=== PATIENT | female | born 1980 | race Caucasian/White ===

== ENCOUNTER 2019-03-13 02:09 | Inpatient (IN) | payer MEDICAID ==
[~2019-03-13] VITALS: Ht 162.6 cm; Wt 134.1 kg
[2019-03-13] MEDS ORDERED: ALUMINUM/MAG/SIMETHICONE 30 ML UDC ONE ×2 (02:45→03:06)
[2019-03-13] MEDS ORDERED: ALUMINUM/MAG/SIMETHICONE 30 ML UDC PO PRN (03:00)
[2019-03-13] MEDS ORDERED: ONDANSETRON ODT 8 MG ONE (03:05)
[2019-03-13 03:06] LABS: BASOPHILS # (AUTO) 0.03 x10^3/uL (0-0.1); BASOPHILS % (AUTO) 0 % (0-1); EOSINOPHILS # (AUTO) 0.04 x10^3/uL (0-0.4); EOSINOPHILS % (AUTO) 0 % (1-7); LYMPHOCYTES # (AUTO) 1.89 x10^3/uL (1-3.4); LYMPHOCYTES % (AUTO) 22 % (22-44); MD NO; MEAN CORPUSCULAR HEMOGLOBIN 29.7 pg (27.0-34.8); MEAN CORPUSCULAR HGB CONC 33.7 g/dL (32.4-35.8); MEAN CORPUSCULAR VOLUME 88.2 fL (80-100); MEAN PLATELET VOLUME 7.6 fL (7.4-10.4); MONOCYTES # (AUTO) 0.47 x10^3/uL (0.2-0.8); MONOCYTES % (AUTO) 5 % (2-9); NEUTROPHILS # (AUTO) 6.25 x10^3/uL (1.8-6.8); NEUTROPHILS % (AUTO) 72 % (42-75); PLATELET COUNT 297 x10^3/uL (130-400); RED BLOOD COUNT 4.41 x10^6/uL (3.82-5.3); RED CELL DISTRIBUTION WIDTH 15.3 % (9.6-15.2)
[2019-03-13 03:11] LABS: CREATININE,URINE RANDOM 95.9 mg/dL
[2019-03-13 03:17] LABS: MICROSCOPIC NOT IND
[2019-03-13 03:19] LABS: ALANINE AMINOTRANSFERASE 16 U/L (12-78); ALBUMIN 2.5 g/dL (3.4-5.0); ANION GAP 6 mmol/L (5-15); CALCIUM 8.5 mg/dL (8.5-10.1); CHLORIDE 109 mmol/L (98-107)
[2019-03-13 03:21] LABS: ALKALINE PHOSPHATASE 158 U/L (45-117); TOTAL PROTEIN 6.3 g/dL (6.4-8.2)
[2019-03-13 03:22] LABS: BILIRUBIN,TOTAL < 0.1 mg/dL (0.2-1.0)
[2019-03-13] MEDS ORDERED: OXYcodone/APAP 10/325MG TABLET ONE (03:38)
[2019-03-13] MEDS ORDERED: ONDANSETRON ODT 8 MG PO PRN (04:00)
[2019-03-13] MEDS ORDERED: OXYcodone/APAP 10/325MG TABLET PO ONE (04:00)
[2019-03-13] MEDS ORDERED: ONDANSETRON 2MG/ML, 2ML ONE ×4 (07:38→19:48)
[2019-03-13] MEDS: ONDANSETRON 2MG/ML, 2ML IVPush PRN ×4 (07:40→19:52)
[2019-03-13] MEDS ORDERED: HYDROmorphone 2 MG/ML, 1ML ONE ×5 (07:46→17:37)
[2019-03-13] MEDS: HYDROmorphone 2 MG/ML, 1ML IV PRN ×5 (07:50→17:40)
[2019-03-13] MEDS: D5%-LACTATED RINGERS 1,000 ML IV SCH (07:50)
[2019-03-13] MEDS: LAMOTRIGINE 200 MG TABLET PO SCH ×2 (09:00→20:30)
[2019-03-13] MEDS: LEVETIRACETAM 500 MG TABLET HOMEMEDPO SCH ×2 (09:00→20:30)
[2019-03-13] MEDS: LACTATED RINGERS 1,000 ML IV SCH ×2 (12:02→19:51)
[2019-03-13] MEDS ORDERED: LACTATED RINGERS 1,000 ML IV SCH (18:19)
[2019-03-13] MEDS ORDERED: OXYTOCIN 30U/ 0.9% NaCL 500ML 500 ML IV PRN (18:19)
[2019-03-13] MEDS ORDERED: D5%-LACTATED RINGERS 1,000 ML IV SCH (18:19)
[2019-03-13] MEDS ORDERED: OXYTOCIN 30U/ 0.9% NaCL 500ML 500 ML IV ONE (18:19)
[2019-03-13] MEDS ORDERED: FENTANYL PF 100 MCG/2ML IV PRN (18:30)
[2019-03-13] MEDS ORDERED: CALCIUM CARBONATE 500 MG TAB.CHEW PO PRN (18:30)
[2019-03-13] MEDS ORDERED: ZOSYN PER PHARMACY MC PRN (18:30)
[2019-03-13] MEDS ORDERED: FENTANYL PF 100 MCG/2ML IVPush PRN (18:30)
[2019-03-13] MEDS: PIPERACILLIN/TAZO/PMX 3.375GM 50 ML IV SCH (18:38)
[2019-03-13 19:11] LABS: BASOPHILS # (AUTO) 0.06 x10^3/uL (0-0.1); BASOPHILS % (AUTO) 1 % (0-1); EOSINOPHILS # (AUTO) 0.03 x10^3/uL (0-0.4); EOSINOPHILS % (AUTO) 0 % (1-7); HEMOGRAM NOTE RECHECKED; LYMPHOCYTES # (AUTO) 1.94 x10^3/uL (1-3.4); LYMPHOCYTES % (AUTO) 18 % (22-44); MD NO; MEAN CORPUSCULAR HEMOGLOBIN 29.5 pg (27.0-34.8); MEAN CORPUSCULAR HGB CONC 33.4 g/dL (32.4-35.8); MEAN CORPUSCULAR VOLUME 88.3 fL (80-100); MEAN PLATELET VOLUME 7.3 fL (7.4-10.4); MONOCYTES # (AUTO) 0.54 x10^3/uL (0.2-0.8); MONOCYTES % (AUTO) 5 % (2-9); NEUTROPHILS # (AUTO) 8.06 x10^3/uL (1.8-6.8); NEUTROPHILS % (AUTO) 76 % (42-75); PLATELET COUNT 272 x10^3/uL (130-400); RED BLOOD COUNT 4.02 x10^6/uL (3.82-5.3); RED CELL DISTRIBUTION WIDTH 15.6 % (9.6-15.2)
[2019-03-13 19:23] VITALS: BP 146/83
[2019-03-13 19:25] LABS: ALANINE AMINOTRANSFERASE 17 U/L (12-78); ALBUMIN 2.3 g/dL (3.4-5.0); ANION GAP 5 mmol/L (5-15); CALCIUM 8.1 mg/dL (8.5-10.1); CHLORIDE 109 mmol/L (98-107)
[2019-03-13 19:28] LABS: ALKALINE PHOSPHATASE 144 U/L (45-117); BILIRUBIN,TOTAL 0.3 mg/dL (0.2-1.0); TOTAL PROTEIN 5.6 g/dL (6.4-8.2)
[2019-03-13] MEDS ORDERED: MISOPROSTOL 25 MCG TABLET ONE (19:48)
[2019-03-13] MEDS: MISOPROSTOL 25 MCG TABLET VG PRN (19:59)
[2019-03-13] MEDS ORDERED: MISOPROSTOL 200 MCG TABLET ONE (21:24)
[2019-03-13] MEDS ORDERED: OXYTOCIN 30U/ 0.9% NaCL 500ML 500 ML ONE (21:24)
[2019-03-13] MEDS ORDERED: LIDOCAINE 1%, 20ML ONE (21:24)
[2019-03-13] MEDS ORDERED: NEWBORN KIT ONE (22:14)
[2019-03-14] MEDS ORDERED: ACETAMINOPHEN 325 MG TABLET ONE (00:10)
[2019-03-14] MEDS ORDERED: ACETAMINOPHEN 325 MG TABLET PO PRN (00:13)
[2019-03-14] MEDS: MISOPROSTOL 25 MCG TABLET VG PRN (01:00)
[2019-03-14] MEDS ORDERED: MISOPROSTOL 25 MCG TABLET ONE (01:02)
[2019-03-14] MEDS: D5%-LACTATED RINGERS 1,000 ML IV SCH (04:39)
[2019-03-14] MEDS ORDERED: TERBUTALINE 1 MG/ML, 1ML ONE ×2 (04:55→12:02)
[2019-03-14] MEDS ORDERED: TERBUTALINE 1 MG/ML, 1ML IV ONE (05:00)
[2019-03-14] MEDS ORDERED: METOCLOPRAMIDE 5 MG/ML, 2ML ONE (05:11)
[2019-03-14] MEDS ORDERED: SODIUM CITRATE/CITRIC ACID 15 ML UDC ONE (05:11)
[2019-03-14] MEDS: PIPERACILLIN/TAZO/PMX 3.375GM 50 ML IV SCH ×3 (06:36→18:33)
[2019-03-14] MEDS: LACTATED RINGERS 1,000 ML IVBOLUS PRN ×3 (07:21→12:30)
[2019-03-14] MEDS ORDERED: BUPIVACAINE 0.25% ONE (08:15)
[2019-03-14] MEDS ORDERED: LIDOCAINE/PF 1.5%-EPI 1:200K, 30ML ONE (08:16)
[2019-03-14] MEDS ORDERED: FENTANYL/BUPIV./NS/PF 250 ML EPIDCONT ONE (08:16)
[2019-03-14] MEDS ORDERED: FENTANYL/BUPIV./NS/PF 250 ML EPIDCONT SCH (08:55)
[2019-03-14] MEDS ORDERED: LACTATED RINGERS 1,000 ML IV SCH ×2 (08:55→14:18)
[2019-03-14] MEDS ORDERED: NALOXONE 0.4 MG/ML, 1ML IVPush PRN (09:00)
[2019-03-14] MEDS ORDERED: ONDANSETRON 2MG/ML, 2ML IVPush PRN ×2 (09:00→17:30)
[2019-03-14] MEDS ORDERED: EPHEDRINE 50 MG/ML, 1ML IVPush PRN ×2 (09:00→17:30)
[2019-03-14] MEDS ORDERED: DIPHENHYDRAMINE 50 MG/ML, 1ML IVPush PRN (09:00)
[2019-03-14] MEDS: LEVETIRACETAM 500 MG TABLET HOMEMEDPO SCH ×2 (09:35→21:06)
[2019-03-14] MEDS: LAMOTRIGINE 200 MG TABLET PO SCH ×2 (09:35→21:06)
[2019-03-14 10:52] VITALS: BP 116/62
[2019-03-14] MEDS ORDERED: TERBUTALINE 1 MG/ML, 1ML IVPush PRN (12:00)
[2019-03-14] MEDS ORDERED: TERBUTALINE 1 MG/ML, 1ML SQ PRN (12:00)
[2019-03-14] MEDS ORDERED: LIDOCAINE/MPF 2%-EPI 1:200K, 20 ML ONE (12:44)
[2019-03-14] MEDS ORDERED: DEXAMETHASONE 4 MG/ML, 1ML ONE (13:07)
[2019-03-14] MEDS ORDERED: ONDANSETRON 2MG/ML, 2ML ONE (13:07)
[2019-03-14] MEDS ORDERED: OXYTOCIN 10 UNITS/ML, 1ML ONE (13:07)
[2019-03-14] MEDS ORDERED: WATER-INJECTION,STERILE 10 ML IV ONE (13:07)
[2019-03-14] MEDS ORDERED: CEFAZOLIN 1,000 MG ONE (13:07)
[2019-03-14] MEDS ORDERED: morphine SULFATE/PF 0.5 MG/ML, 10ML ONE (13:13)
[2019-03-14] MEDS ORDERED: RHOGAM FROM BLOOD BANK 1 NOTE EA IM/IV ONE (14:30)
[2019-03-14] MEDS ORDERED: ONDANSETRON 2MG/ML, 2ML IV PRN (14:30)
[2019-03-14] MEDS ORDERED: METHYLERGONOVINE 0.2 MG/ML IM PRN (14:30)
[2019-03-14] MEDS ORDERED: CARBOPROST TROMETHAMINE 250 MCG/ML, 1ML IM PRN (14:30)
[2019-03-14] MEDS ORDERED: OXYcodone IR 5MG TABLET PO PRN (14:30)
[2019-03-14] MEDS ORDERED: MISOPROSTOL 200 MCG TABLET PR PRN (14:30)
[2019-03-14] MEDS ORDERED: KETOROLAC 30 MG/1 ML ONE (14:39)
[2019-03-14] MEDS: KETOROLAC 30 MG/1 ML IV SCH ×2 (14:42→22:17)
[2019-03-14] MEDS ORDERED: SODIUM CITRATE/CITRIC ACID 15 ML UDC PO ONE (15:30)
[2019-03-14] MEDS ORDERED: METOCLOPRAMIDE 5 MG/ML, 2ML IV ONE (15:30)
[2019-03-14] MEDS ORDERED: OXYcodone 5 MG/5 ML ORAL.SOL UDC ONE (15:57)
[2019-03-14] MEDS ORDERED: OXYcodone 5 MG/5 ML ORAL.SOL UDC PO ONE ×2 (16:00→16:30)
[2019-03-14] MEDS: LACTATED RINGERS 1,000 ML IV SCH ×2 (16:03→21:05)
[2019-03-14] MEDS: OXYTOCIN 30U/ 0.9% NaCL 500ML 500 ML IV SCH (16:04)
[2019-03-14 16:36] VITALS: BP 90/52
[2019-03-14] MEDS ORDERED: DO NOT GIVE XX SCH (17:30)
[2019-03-14] MEDS ORDERED: KETOROLAC 30 MG/1 ML IVPush SCH (17:30)
[2019-03-14] MEDS ORDERED: NALOXONE 0.4 MG/ML, 1ML IV PRN ×2 (17:30)
[2019-03-14] MEDS ORDERED: morphine SULFATE 10 MG/ML, 1ML IV PRN (17:30)
[2019-03-14 20:15] VITALS: BP 109/71
[2019-03-14] MEDS ORDERED: LACTATED RINGERS 500 ML IVBOLUS ONE (20:30)
[2019-03-14 21:42] LABS: BASOPHILS % (AUTO) 0 % (0-1); EOSINOPHILS % (AUTO) 0 % (1-7); LYMPHOCYTES # (AUTO) 1.05 x10^3/uL (1-3.4); LYMPHOCYTES % (AUTO) 10 % (22-44); MD NO; MEAN CORPUSCULAR HEMOGLOBIN 29.7 pg (27.0-34.8); MEAN CORPUSCULAR VOLUME 90.2 fL (80-100); MONOCYTES # (AUTO) 0.25 x10^3/uL (0.2-0.8); MONOCYTES % (AUTO) 2 % (2-9); NEUTROPHILS # (AUTO) 9.42 x10^3/uL (1.8-6.8); NEUTROPHILS % (AUTO) 88 % (42-75); PLATELET COUNT 239 x10^3/uL (130-400); RED CELL DISTRIBUTION WIDTH 15.4 % (9.6-15.2)
[2019-03-14 23:45] VITALS: BP 104/69
[2019-03-15] MEDS: PIPERACILLIN/TAZO/PMX 3.375GM 50 ML IV SCH ×4 (00:10→17:50)
[2019-03-15] MEDS: OXYTOCIN 30U/ 0.9% NaCL 500ML 500 ML IV SCH ×3 (00:18→20:18)
[2019-03-15 04:00] VITALS: BP 99/64
[2019-03-15] MEDS: KETOROLAC 30 MG/1 ML IV SCH ×4 (04:30→22:50)
[2019-03-15 07:48] VITALS: BP 85/59
[2019-03-15] MEDS: LEVETIRACETAM 500 MG TABLET HOMEMEDPO SCH ×2 (08:20→21:00)
[2019-03-15] MEDS: LAMOTRIGINE 200 MG TABLET PO SCH ×2 (08:24→21:00)
[2019-03-15] MEDS: PRENATAL VIT/IRON/FA 1 EACH TABLET PO SCH (09:00)
[2019-03-15] MEDS: LACTATED RINGERS 1,000 ML IV SCH ×2 (10:18→20:18)
[2019-03-15] MEDS ORDERED: DIPH,PERTUSS(ACELL),TET VAC/PF NC IM-VACC ONE ×2 (11:00→16:30)
[2019-03-15 12:00] VITALS: BP 104/70
[2019-03-15] MEDS ORDERED: MEASLES,MUMPS&RUBELLA VACC/PF 0.5 ML SQ-VACC ONE (16:30)
[2019-03-15 20:00] VITALS: BP 97/59
[2019-03-15] MEDS: OXYcodone IR 5MG TABLET PO PRN (21:14)
[2019-03-16] MEDS: PIPERACILLIN/TAZO/PMX 3.375GM 50 ML IV SCH ×3 (00:15→16:20)
[2019-03-16] MEDS: OXYcodone IR 5MG TABLET PO PRN ×3 (01:35→16:20)
[2019-03-16] MEDS: KETOROLAC 30 MG/1 ML IV SCH ×2 (04:22→11:55)
[2019-03-16] MEDS: LACTATED RINGERS 1,000 ML IV SCH ×2 (06:18→17:09)
[2019-03-16] MEDS: OXYTOCIN 30U/ 0.9% NaCL 500ML 500 ML IV SCH ×2 (06:18→17:09)
[2019-03-16] MEDS: LEVETIRACETAM 500 MG TABLET HOMEMEDPO SCH ×2 (07:30→20:19)
[2019-03-16] MEDS: LAMOTRIGINE 200 MG TABLET PO SCH ×2 (07:30→20:19)
[2019-03-16 07:40] VITALS: BP 131/80
[2019-03-16] MEDS ORDERED: FENTANYL PF 250 MCG/5ML ONE (09:56)
[2019-03-16] MEDS ORDERED: MIDAZOLAM 1 MG/ML, 2ML ONE (09:56)
[2019-03-16] MEDS ORDERED: SUCCINYLCHOLINE 20 MG/ML, 10ML ONE (09:57)
[2019-03-16] MEDS ORDERED: DEXAMETHASONE 4 MG/ML, 1ML ONE (09:57)
[2019-03-16] MEDS ORDERED: ROCURONIUM 10MG/ML,5ML ONE (09:57)
[2019-03-16] MEDS ORDERED: NEOSTIGMINE 1 MG/ML, 10ML ONE (09:57)
[2019-03-16] MEDS ORDERED: GLYCOPYRROLATE 0.2MG/1ML, 5ML ONE (09:57)
[2019-03-16] MEDS ORDERED: CEFOTETAN PMX 2GM/50ML 50 ML ONE (09:57)
[2019-03-16] MEDS ORDERED: ONDANSETRON 2MG/ML, 2ML ONE (09:57)
[2019-03-16] MEDS ORDERED: PROPOFOL 10 MG/ML, 20ML ONE (09:57)
[2019-03-16] MEDS: PRENATAL VIT/IRON/FA 1 EACH TABLET PO SCH (10:01)
[2019-03-16] MEDS ORDERED: BUPIVACAINE/PF-EPI 0.5% 1:200K ONE (10:05)
[2019-03-16] MEDS ORDERED: HALOPERIDOL 5 MG/ML IV PRN (10:30)
[2019-03-16] MEDS ORDERED: LABETALOL 5MG/ML, 20ML IV PRN (10:30)
[2019-03-16] MEDS ORDERED: HYDROmorphone 2 MG/ML, 1ML IVPush PRN (10:30)
[2019-03-16] MEDS ORDERED: PROMETHAZINE 25 MG SUPP PR PRN (10:30)
[2019-03-16] MEDS ORDERED: hydrALAzine 20 MG/ML, 1ML IV PRN (10:30)
[2019-03-16] MEDS ORDERED: MEPERIDINE/PF 25MG/0.5ML IVPush PRN (10:30)
[2019-03-16] MEDS ORDERED: FENTANYL PF 100 MCG/2ML IV PRN (10:30)
[2019-03-16] MEDS ORDERED: ONDANSETRON ODT 8 MG PO PRN (10:30)
[2019-03-16] MEDS ORDERED: MORPHINE SULFATE 4 MG/ML, 1ML IVPush PRN (10:30)
[2019-03-16] MEDS ORDERED: PROMETHAZINE 12.5 MG SUPP PR PRN (10:30)
[2019-03-16] MEDS ORDERED: ONDANSETRON 2MG/ML, 2ML IV PRN (10:30)
[2019-03-16] MEDS ORDERED: PROMETHAZINE 25 MG/ML, 1ML IM PRN ×2 (10:30)
[2019-03-16] MEDS ORDERED: ACETAMINOPHEN 325 MG TABLET PO PRN (10:30)
[2019-03-16] MEDS ORDERED: PROMETHAZINE 25 MG/ML, 1ML IV PRN (10:30)
[2019-03-16] MEDS ORDERED: OXYcodone 5 MG/5 ML ORAL.SOL UDC PO PRN (10:30)
[2019-03-16] MEDS ORDERED: BUPIVACAINE/PF-EPI 0.5% 1:200K INFIL ONE (10:41)
[2019-03-16] MEDS ORDERED: FENTANYL PF 100 MCG/2ML ONE (10:59)
[2019-03-16] MEDS ORDERED: MEPERIDINE/PF 25MG/ML,1ML ONE (11:38)
[2019-03-16] MEDS ORDERED: OXYcodone 5 MG/5 ML ORAL.SOL UDC ONE (11:38)
[2019-03-16] MEDS ORDERED: KETOROLAC 30 MG/1 ML ONE (11:54)
[2019-03-16] MEDS ORDERED: HALOPERIDOL 5 MG/ML ONE (11:58)
[2019-03-16 20:00] VITALS: BP 103/59
[2019-03-16] MEDS: IBUPROFEN 800 MG TABLET PO PRN (20:18)
[2019-03-17] MEDS: LACTATED RINGERS 1,000 ML IV SCH ×3 (03:40→22:18)
[2019-03-17] MEDS: AMOXICILLIN/CLAV 500-125MG TABLET PO SCH ×3 (03:40→19:42)
[2019-03-17] MEDS: OXYTOCIN 30U/ 0.9% NaCL 500ML 500 ML IV SCH ×3 (03:41→22:18)
[2019-03-17] MEDS: IBUPROFEN 800 MG TABLET PO PRN ×3 (04:46→23:18)
[2019-03-17 05:53] LABS: BASOPHILS # (AUTO) 0.03 x10^3/uL (0-0.1); BASOPHILS % (AUTO) 0 % (0-1); EOSINOPHILS # (AUTO) 0.02 x10^3/uL (0-0.4); EOSINOPHILS % (AUTO) 0 % (1-7); LYMPHOCYTES # (AUTO) 2.29 x10^3/uL (1-3.4); LYMPHOCYTES % (AUTO) 23 % (22-44); MD NO; MEAN CORPUSCULAR HEMOGLOBIN 29.1 pg (27.0-34.8); MEAN CORPUSCULAR HGB CONC 31.7 g/dL (32.4-35.8); MEAN CORPUSCULAR VOLUME 91.8 fL (80-100); MEAN PLATELET VOLUME 7.8 fL (7.4-10.4); MONOCYTES # (AUTO) 0.67 x10^3/uL (0.2-0.8); MONOCYTES % (AUTO) 7 % (2-9); NEUTROPHILS # (AUTO) 7.13 x10^3/uL (1.8-6.8); NEUTROPHILS % (AUTO) 70 % (42-75); PLATELET COUNT 257 x10^3/uL (130-400); RED BLOOD COUNT 3.45 x10^6/uL (3.82-5.3)
[2019-03-17 06:04] LABS: CHLORIDE 108 mmol/L (98-107)
[2019-03-17 06:11] LABS: ALANINE AMINOTRANSFERASE 36 U/L (12-78); ALBUMIN 1.9 g/dL (3.4-5.0); ALKALINE PHOSPHATASE 123 U/L (45-117); ANION GAP 5 mmol/L (5-15); BILIRUBIN,TOTAL 0.3 mg/dL (0.2-1.0); CREATININE 0.87 mg/dL (0.55-1.02); TOTAL PROTEIN 5.2 g/dL (6.4-8.2)
[2019-03-17] MEDS: LAMOTRIGINE 200 MG TABLET PO SCH ×2 (08:08→19:43)
[2019-03-17] MEDS: OXYcodone IR 5MG TABLET PO PRN ×3 (08:08→19:51)
[2019-03-17] MEDS: LEVETIRACETAM 500 MG TABLET HOMEMEDPO SCH ×2 (08:08→19:43)
[2019-03-17 08:12] VITALS: BP 110/61
[2019-03-17] MEDS: PRENATAL VIT/IRON/FA 1 EACH TABLET PO SCH (09:31)
[2019-03-17 20:45] VITALS: BP 116/78
[2019-03-18] MEDS: AMOXICILLIN/CLAV 500-125MG TABLET PO SCH (03:44)
[2019-03-18] MEDS: OXYcodone IR 5MG TABLET PO PRN (03:44)
[2019-03-18 07:20] VITALS: BP 131/81
[2019-03-18] MEDS: LAMOTRIGINE 200 MG TABLET PO SCH (07:40)
[2019-03-18] MEDS: LEVETIRACETAM 500 MG TABLET HOMEMEDPO SCH (07:40)
[2019-03-18] MEDS: IBUPROFEN 800 MG TABLET PO PRN (07:40)
[2019-03-18] MEDS: OXYTOCIN 30U/ 0.9% NaCL 500ML 500 ML IV SCH (07:45)
[2019-03-18] MEDS: LACTATED RINGERS 1,000 ML IV SCH (07:45)
[2019-03-18] MEDS: PRENATAL VIT/IRON/FA 1 EACH TABLET PO SCH (08:04)
[2019-03-18] MEDS ORDERED: IBUP-1223 PO (11:03)
[2019-03-18] MEDS ORDERED: OXYC-302 PO (11:03)
[2019-03-18] MEDS ORDERED: AMOX1TAB61 PO (11:04)
== END 2019-03-18 11:22 | disposition home or self-care (01) | DRG 787 ==
LOC: LDOP 02:09 → LDIP 04:00 → OBSVTOIN 04:00 → LDIP 06:03 → 2NW 03-14 16:28
PROVIDERS: ADMIT Obstetrics & Gynecology; ATTEND Obstetrics & Gynecology
PROC: 10D00Z1 Extraction of Products of Conception, Low, Open Approach (ICD-10-PCS; principal; 2019-03-14)
PROC: 10S0XZZ Reposition Products of Conception, External Approach (ICD-10-PCS; 2019-03-14)
PROC: 0FT44ZZ Resection of Gallbladder, Percutaneous Endoscopic Approach (ICD-10-PCS; 2019-03-16)
DX: O32.8XX0 Maternal care for other malpresentation of fetus, not applicable or unspecified (principal); K80.00 Calculus of gallbladder with acute cholecystitis without obstruction; K82.1 Hydrops of gallbladder; O99.354 Diseases of the nervous system complicating childbirth; O26.62 Liver and biliary tract disorders in childbirth; O99.62 Diseases of the digestive system complicating childbirth; O99.214 Obesity complicating childbirth; E66.01 Morbid (severe) obesity due to excess calories; O16.4 Unspecified maternal hypertension, complicating childbirth; K76.0 Fatty (change of) liver, not elsewhere classified; G40.909 Epilepsy, unspecified, not intractable, without status epilepticus; K66.8 Other specified disorders of peritoneum; O75.89 Other specified complications of labor and delivery; Z3A.36 36 weeks gestation of pregnancy; Z37.0 Single live birth
CPT/HCPCS: 36415; J7121; 59412; 76705; 76815; 80053; 81003; 82150; 82570; 82803; 83690; 84156; 84550; 85025; 86850; 86900; 87086; 88304; 90715; G0378; J0690; J1100; J1170; J1885; J2175; J2250; J2274; J2405; J2543; J2704; J2710; J3010; J3490; C1765; J0330; J1630; J2590; J2765; J3105; J7120